=== PATIENT | female | born 1990 | race Caucasian/White ===

== ENCOUNTER 2020-12-21 06:00 | Inpatient (IN) | payer OTHER ==
[~2020-12-21 06:00] MED LIST: CITRIC ACID/SODIUM CITRATE 30 ML UNIT-DOSE CUP PO ONE; ELECTROLYTE-148 SOLN 500 ML IV ONE
[2020-12-21 06:33] VITALS: BMI 34.2
[2020-12-21] MEDS ORDERED: morphine SULFATE/Preservative Free 0.5 MG/ML (1cc Syringe) ONE (07:52)
[2020-12-21] MEDS ORDERED: OXYTOCIN 20 UNITS in 0.9% NS 20 UNIT/1,000 ML INFUS.BAG IV ONE (08:01)
[2020-12-21] MEDS ORDERED: ONDANSETRON 4 MG/2 ML VIAL IVPUSH PRN (09:50)
[2020-12-21 09:51] LABS: HIV INTERPRETATION NEGATIVE (NEGATIVE)
[2020-12-21] MEDS ORDERED: oxyCODONE HCL 5 MG TABLET PO PRN ×2 (10:11)
[2020-12-21] MEDS ORDERED: IBUPROFEN 800 MG/8 ML IJ IVPB PRN (10:11)
[2020-12-21] MEDS ORDERED: METHYLERGONOVINE MALEATE 0.2 MG/1 ML AMP IM PRN (10:11)
[2020-12-21] MEDS ORDERED: DEXAMETHASONE SOD PHOSPHATE 4 MG/1 ML VIAL ONE (11:00)
[2020-12-21] MEDS ORDERED: KETOROLAC TROMETHAMINE 30 MG/1 ML VIAL ONE (11:00)
[2020-12-21] MEDS ORDERED: OXYTOCIN 10 UNITS/ML VIAL ONE (11:00)
[2020-12-21] MEDS ORDERED: ceFAZolin SODIUM 1 GM VIAL ONE (11:00)
[2020-12-21] MEDS ORDERED: GLYCOPYRROLATE 0.2 MG/1 ML VIAL ONE (11:01)
[2020-12-22] MEDS: IBUPROFEN 600 MG TABLET (FP) PO PRN ×6 (02:57→23:12)
[2020-12-22] MEDS: ACETAMINOPHEN 325 MG TABLET (FP) PO PRN ×6 (02:59→23:11)
[2020-12-22] MEDS: SENNOSIDES/DOCUSATE COMBO (SENNA PLUS) TABLET (UD) PO PRN ×2 (02:59→20:43)
[2020-12-22] MEDS: ELECTROLYTE-148 SOLN 1,000 ML IV SCH ×2 (02:59→06:39)
[2020-12-22] MEDS: OXYTOCIN 20 UNITS in 0.9% NS 20 UNIT/1,000 ML INFUS.BAG IV SCH (02:59)
[2020-12-22] MEDS: SIMETHICONE 80 MG TAB.CHEW (FP) PO PRN ×6 (02:59→23:13)
[2020-12-22 07:55] LABS: BASO % 0.4 % (0-2.0); EOS % 1.7 % (0-4.5); HEMATOCRIT 32.6 % (32.4-45.2); HEMOGLOBIN 11.4 GM/dL (10.7-15.3); LYMPH % 17.9 % (8-40); MCH 33.8 pg (25.7-33.7); MCHC 34.9 g/dl (32.0-36.0); MEAN CELL VOLUME 96.8 fl (80-96); MEAN PLT VOLUME 9.3 fl (7.5-11.1); MONO % 5.9 % (3.8-10.2); NEUT % 74.1 % (42.8-82.8); PLATELET COUNT 240 K/MM3 (134-434); RBC 3.37 M/mm3 (3.60-5.2); RDW 13.2 % (11.6-15.6); WHITE BLOOD COUNT 11.2 K/mm3 (4.0-10.0)
[2020-12-22] MEDS ORDERED: BISACODYL 10 MG SUPP.RECT RC PRN (10:11)
[2020-12-22] MEDS: PRENATAL VITAMINS W/ FOLIC ACID TABLET (FP) PO SCH (10:21)
[2020-12-23] MEDS: OXYTOCIN 20 UNITS in 0.9% NS 20 UNIT/1,000 ML INFUS.BAG IV SCH (00:25)
[2020-12-23] MEDS: ACETAMINOPHEN 325 MG TABLET (FP) PO PRN ×2 (04:03→09:13)
[2020-12-23] MEDS: IBUPROFEN 600 MG TABLET (FP) PO PRN ×2 (04:03→09:14)
[2020-12-23] MEDS: SIMETHICONE 80 MG TAB.CHEW (FP) PO PRN ×2 (04:04→09:14)
[2020-12-23 09:53] VITALS: BP 118/67; PULSE 78; TEMP 97.8
[2020-12-23] MEDS: PRENATAL VITAMINS W/ FOLIC ACID TABLET (FP) PO SCH (10:44)
== END 2020-12-23 12:15 | disposition home or self-care (01) | DRG 788 ==
LOC: JLDR 06:00 → J3W 10:53
PROVIDERS: ADMIT Obstetrics & Gynecology; ATTEND Obstetrics & Gynecology
PROC: 10D00Z1 Extraction of Products of Conception, Low, Open Approach (ICD-10-PCS; principal; 2020-12-21)
DX: O44.43 Low lying placenta NOS or without hemorrhage, third trimester (principal); O36.63X0 Maternal care for excessive fetal growth, third trimester, not applicable or unspecified; O32.2XX0 Maternal care for transverse and oblique lie, not applicable or unspecified; O69.1XX0 Labor and delivery complicated by cord around neck, with compression, not applicable or unspecified; Z3A.39 39 weeks gestation of pregnancy; Z37.0 Single live birth
CPT/HCPCS: 36415; 85025; 85461; 86850; 86900; 86901; 86999; 87389; 88307-TC